=== PATIENT | male | born 1940 | race Caucasian/White ===

== ENCOUNTER 2021-11-17 06:24 | Inpatient (IN) | payer MEDICARE, MEDICAID ==
[~2021-11-17] VITALS: Ht 172.7 cm; Wt 61.3 kg
[2021-11-17] MEDS ORDERED: ACETAMINOPHEN 325MG TABLET PO STA (07:19)
[2021-11-17] MEDS ORDERED: SODIUM CHLORIDE 0.9% 1000ML BAG (SEPSIS BOLUS) IV ONE (07:30)
[2021-11-17] MEDS ORDERED: AZITHROMYCIN 500MG/250ML 250 ML IV ONE (07:30)
[2021-11-17] MEDS ORDERED: CEFTRIAXONE 1 G PREMIX 50 ML IV ONE (07:30)
[2021-11-17 07:57] LABS: BASOPHILS % 0.2 % (0.0-2.0); HEMOGLOBIN. 13.7 g/dL (14.0-18.0); LYMPHOCYTES % 8.5 % (20.0-50.0); MEAN CORPUSCULAR HEMOGLOBIN 30.2 pg (28.0-32.0); MEAN CORPUSCULAR VOLUME 88.1 fL (80.0-94.0); MEAN PLATELET VOLUME 9.5 fl (7.4-10.4); MONOCYTES % 7.9 % (2.0-8.0); NEUTROPHILS % 83.4 % (40.0-76.0); PLATELET 171 x1000/uL (130-400); RED BLOOD CELL COUNT 4.54 mill/uL (4.7-6.1); RED CELL DISTRIBUTION WIDTH 14.1 % (11.6-14.6)
[2021-11-17 08:06] LABS: CHLORIDE 108 mEq/L (98-107); PROTHROMBIN TIME 10.8 sec (9.6-11.0)
[2021-11-17 09:10] LABS: CLARITY URINE HAZY (CLEAR); COLOR URINE YELLOW (YELLOW); KETONES URINE NEGATIVE (NEGATIVE); PROTEIN URINE TRACE (NEGATIVE); SPECIFIC GRAVITY URINE 1.018 (1.005-1.030)
[2021-11-17 09:11] LABS: LEUKOCYTE ESTERASE URINE 1+ (NEGATIVE); NITRITE URINE NEGATIVE (NEGATIVE); OCCULT BLOOD URINE 1+ (NEGATIVE); UROBILINOGEN URINE 0.2 E.U./dL (0.2-1.0)
[2021-11-18] VITALS (7 sets, daily range): BP systolic 107–155; BP diastolic 56–88
[2021-11-18] MEDS ORDERED: ACETAMINOPHEN 325MG TABLET PO PRN (01:15)
[2021-11-18] MEDS ORDERED: TAMS-11 PO (03:17)
[2021-11-18] MEDS ORDERED: *PATIENT'S OWN MEDICATION STORAGE XX SCH (04:30)
[2021-11-18] MEDS: TAMSULOSIN HCL 0.4MG SR CAPSULE PO SCH (09:18)
[2021-11-18] MEDS: ENOXAPARIN 40MG/0.4ML SYR SUBCUT SCH (09:18)
[2021-11-18] MEDS: DEXAMETHASONE 10 MG/ML VIAL IV SCH (09:19)
[2021-11-18] MEDS: CEFTRIAXONE 1,000 MG in DEXTROSE 5% WATER 50 ML IV SCH (09:19)
[2021-11-18] MEDS: AZITHROMYCIN 500 MG in DEXT 5% WATER 250 ML IV SCH (10:12)
[2021-11-18 15:23] LABS: CHLORIDE 102 mEq/L (98-107)
[2021-11-18 15:26] LABS: HEMATOCRIT. 40.7 % (42.0-52.0); HEMOGLOBIN. 13.5 g/dL (14.0-18.0); MEAN CORPUSCULAR HEMOGLOBIN 28.9 pg (28.0-32.0); MEAN CORPUSCULAR VOLUME 87.2 fL (80.0-94.0); RED BLOOD CELL COUNT 4.66 mill/uL (4.7-6.1)
[2021-11-18 15:27] LABS: MEAN PLATELET VOLUME 9.7 fl (7.4-10.4); PLATELET 174 x1000/uL (130-400); RED CELL DISTRIBUTION WIDTH 13.8 % (11.6-14.6)
[2021-11-18 16:14] LABS: PLATELET ESTIMATE NORMAL
[2021-11-19] VITALS: BP 106/65
[2021-11-19 04:00] VITALS: BP 109/61
[2021-11-19] MEDS: CEFTRIAXONE 1,000 MG in DEXTROSE 5% WATER 50 ML IV SCH (09:01)
[2021-11-19] MEDS: ENOXAPARIN 40MG/0.4ML SYR SUBCUT SCH (09:01)
[2021-11-19] MEDS: DEXAMETHASONE 10 MG/ML VIAL IV SCH (09:01)
[2021-11-19] MEDS: TAMSULOSIN HCL 0.4MG SR CAPSULE PO SCH (09:02)
[2021-11-19] MEDS: GUAIFENESIN 200MG/10ML SUGAR FREE UDC PO PRN ×2 (12:09→20:21)
[2021-11-19] MEDS: AZITHROMYCIN 500 MG in DEXT 5% WATER 250 ML IV SCH (12:09)
[2021-11-19 16:00] VITALS: BP 143/45
[2021-11-19 20:00] VITALS: BP 150/94
[2021-11-20] VITALS: BP 143/91
[2021-11-20 04:00] VITALS: BP 133/86
[2021-11-20 08:00] VITALS: BP 133/99
[2021-11-20] MEDS: ENOXAPARIN 40MG/0.4ML SYR SUBCUT SCH (08:36)
[2021-11-20] MEDS: CEFTRIAXONE 1,000 MG in DEXTROSE 5% WATER 50 ML IV SCH (08:36)
[2021-11-20] MEDS: TAMSULOSIN HCL 0.4MG SR CAPSULE PO SCH (08:37)
[2021-11-20] MEDS: DEXAMETHASONE 10 MG/ML VIAL IV SCH (08:37)
[2021-11-20] MEDS: AZITHROMYCIN 500 MG in DEXT 5% WATER 250 ML IV SCH (10:09)
[2021-11-20] MEDS: GUAIFENESIN 200MG/10ML SUGAR FREE UDC PO PRN ×2 (10:13→20:06)
[2021-11-20 12:00] VITALS: BP 135/89
[2021-11-20 16:00] VITALS: BP 118/74
[2021-11-20 20:00] VITALS: BP 130/67
[2021-11-21] VITALS: BP 136/91
[2021-11-21 04:00] VITALS: BP 134/85
[2021-11-21] MEDS: GUAIFENESIN 200MG/10ML SUGAR FREE UDC PO PRN ×2 (04:25→20:23)
[2021-11-21 08:00] VITALS: BP 129/79
[2021-11-21] MEDS: ENOXAPARIN 40MG/0.4ML SYR SUBCUT SCH (08:58)
[2021-11-21] MEDS: DEXAMETHASONE 10 MG/ML VIAL IV SCH (08:58)
[2021-11-21] MEDS: CEFTRIAXONE 1,000 MG in DEXTROSE 5% WATER 50 ML IV SCH (08:58)
[2021-11-21] MEDS: AZITHROMYCIN 500 MG TABLET PO SCH (08:59)
[2021-11-21] MEDS: TAMSULOSIN HCL 0.4MG SR CAPSULE PO SCH (08:59)
[2021-11-21 12:00] VITALS: BP 125/82
[2021-11-21 16:00] VITALS: BP 125/79
[2021-11-21] MEDS ORDERED: ZOLPIDEM TARTRATE 5MG TABLET PO PRN (19:15)
[2021-11-21 20:00] VITALS: BP 117/80
[2021-11-22] VITALS: BP 117/75
[2021-11-22 04:00] VITALS: BP 127/85
[2021-11-22 08:00] VITALS: BP 116/74
[2021-11-22] MEDS: CEFTRIAXONE 1,000 MG in DEXTROSE 5% WATER 50 ML IV SCH (08:37)
[2021-11-22] MEDS: AZITHROMYCIN 500 MG TABLET PO SCH (08:38)
[2021-11-22] MEDS: GUAIFENESIN 200MG/10ML SUGAR FREE UDC PO PRN (08:38)
[2021-11-22] MEDS: ENOXAPARIN 40MG/0.4ML SYR SUBCUT SCH (08:38)
[2021-11-22] MEDS: TAMSULOSIN HCL 0.4MG SR CAPSULE PO SCH (08:38)
[2021-11-22] MEDS: DEXAMETHASONE 10 MG/ML VIAL IV SCH (08:38)
[2021-11-22 12:00] VITALS: BP 108/76
[2021-11-22 16:00] VITALS: BP 117/80
[2021-11-22 20:00] VITALS: BP 114/80
[2021-11-23] VITALS: BP 124/80
[2021-11-23 04:00] VITALS: BP 122/74
[2021-11-23 08:00] VITALS: BP 143/92
[2021-11-23] MEDS: TAMSULOSIN HCL 0.4MG SR CAPSULE PO SCH (09:22)
[2021-11-23] MEDS: ENOXAPARIN 40MG/0.4ML SYR SUBCUT SCH (11:35)
[2021-11-23 12:00] VITALS: BP 112/77
[2021-11-23] MEDS: DEXAMETHASONE 10 MG/ML VIAL IV SCH (13:36)
[2021-11-23 16:00] VITALS: BP 121/80
[2021-11-23 20:00] VITALS: BP 123/74
[2021-11-23] MEDS: GUAIFENESIN 200MG/10ML SUGAR FREE UDC PO PRN (20:52)
[2021-11-24] VITALS: BP 120/72
[2021-11-24 04:00] VITALS: BP 108/72
[2021-11-24 08:00] VITALS: BP 112/79
[2021-11-24] MEDS: DEXAMETHASONE 10 MG/ML VIAL IV SCH (08:47)
[2021-11-24] MEDS: GUAIFENESIN 200MG/10ML SUGAR FREE UDC PO PRN (08:47)
[2021-11-24] MEDS: ENOXAPARIN 40MG/0.4ML SYR SUBCUT SCH (08:47)
[2021-11-24] MEDS: TAMSULOSIN HCL 0.4MG SR CAPSULE PO SCH (09:38)
[2021-11-24 20:00] VITALS: BP 108/71
[2021-11-25 04:00] VITALS: BP 124/79
[2021-11-25 08:00] VITALS: BP 104/68
[2021-11-25 08:18] LABS: BASOPHILS % 0.2 % (0.0-2.0); EOSINOPHILS % 1.1 % (0.0-5.0); HEMATOCRIT. 39.2 % (42.0-52.0); HEMOGLOBIN. 13.5 g/dL (14.0-18.0); LYMPHOCYTES % 21.2 % (20.0-50.0); MEAN CORPUSCULAR HEMOGLOBIN 29.6 pg (28.0-32.0); MEAN CORPUSCULAR VOLUME 85.8 fL (80.0-94.0); MEAN PLATELET VOLUME 8.9 fl (7.4-10.4); MONOCYTES % 10.3 % (2.0-8.0); NEUTROPHILS % 67.2 % (40.0-76.0); PLATELET 332 x1000/uL (130-400); RED BLOOD CELL COUNT 4.58 mill/uL (4.7-6.1); RED CELL DISTRIBUTION WIDTH 13.8 % (11.6-14.6)
[2021-11-25] MEDS: DEXAMETHASONE 10 MG/ML VIAL IV SCH (08:29)
[2021-11-25] MEDS: TAMSULOSIN HCL 0.4MG SR CAPSULE PO SCH (08:29)
[2021-11-25] MEDS: ENOXAPARIN 40MG/0.4ML SYR SUBCUT SCH (08:30)
[2021-11-25 08:46] LABS: CHLORIDE 104 mEq/L (98-107)
[2021-11-25 12:00] VITALS: BP 103/68
[2021-11-25 16:00] VITALS: BP 105/64
[2021-11-25 20:00] VITALS: BP 114/74
[2021-11-26] VITALS: BP 138/82
[2021-11-26 03:59] VITALS: BP 115/65
[2021-11-26 08:00] VITALS: BP 117/79
[2021-11-26] MEDS: TAMSULOSIN HCL 0.4MG SR CAPSULE PO SCH (09:03)
[2021-11-26] MEDS: ENOXAPARIN 40MG/0.4ML SYR SUBCUT SCH (09:03)
[2021-11-26] MEDS: DEXAMETHASONE 10 MG/ML VIAL IV SCH (09:04)
[2021-11-26 12:00] VITALS: BP 115/74
[2021-11-26 16:00] VITALS: BP 109/72
[2021-11-26 20:00] VITALS: BP 107/71
[2021-11-27] VITALS: BP 129/80
[2021-11-27 04:00] VITALS: BP 115/79
[2021-11-27 08:00] VITALS: BP 114/77
[2021-11-27] MEDS: DEXAMETHASONE 10 MG/ML VIAL IV SCH (09:15)
[2021-11-27] MEDS: TAMSULOSIN HCL 0.4MG SR CAPSULE PO SCH (09:15)
[2021-11-27] MEDS: ENOXAPARIN 40MG/0.4ML SYR SUBCUT SCH (09:15)
[2021-11-27 12:00] VITALS: BP 135/82
[2021-11-27 16:00] VITALS: BP 110/74
[2021-11-27 20:00] VITALS: BP 150/99
[2021-11-28] VITALS: BP 145/92
[2021-11-28 04:00] VITALS: BP 125/82
[2021-11-28 08:00] VITALS: BP 125/81
[2021-11-28] MEDS: TAMSULOSIN HCL 0.4MG SR CAPSULE PO SCH (09:22)
[2021-11-28] MEDS: ENOXAPARIN 40MG/0.4ML SYR SUBCUT SCH (09:22)
[2021-11-28] MEDS: DEXAMETHASONE 10 MG/ML VIAL IV SCH (09:23)
[2021-11-28 12:00] VITALS: BP 114/67
[2021-11-28 16:00] VITALS: BP 124/82
[2021-11-28] MEDS ORDERED: ALBUTEROL 6.7GM HFA INHALER ORI PRN (17:00)
[2021-11-28] MEDS: BENZONATATE 100MG CAPSULE PO SCH (18:05)
[2021-11-28 20:00] VITALS: BP 105/71
[2021-11-29] VITALS: BP 117/73
[2021-11-29 04:00] VITALS: BP 112/69
[2021-11-29 08:00] VITALS: BP 109/68
[2021-11-29] MEDS: ENOXAPARIN 40MG/0.4ML SYR SUBCUT SCH (08:52)
[2021-11-29] MEDS: BENZONATATE 100MG CAPSULE PO SCH ×3 (08:54→16:19)
[2021-11-29] MEDS: TAMSULOSIN HCL 0.4MG SR CAPSULE PO SCH (08:54)
[2021-11-29 12:00] VITALS: BP 110/76
[2021-11-29 16:00] VITALS: BP 107/73
[2021-11-29 20:00] VITALS: BP 110/73
[2021-11-30] VITALS: BP 110/73
[2021-11-30 04:00] VITALS: BP 105/70
[2021-11-30 08:00] VITALS: BP 114/82
[2021-11-30] MEDS: TAMSULOSIN HCL 0.4MG SR CAPSULE PO SCH (08:57)
[2021-11-30] MEDS: BENZONATATE 100MG CAPSULE PO SCH ×3 (08:57→16:52)
[2021-11-30] MEDS: ENOXAPARIN 40MG/0.4ML SYR SUBCUT SCH (08:57)
[2021-11-30 12:00] VITALS: BP_SYST 109; BP_SYST 124; BP_DIAS 71; BP_DIAS 72
[2021-11-30 15:53] VITALS: BP 105/70
[2021-11-30 20:00] VITALS: BP 118/67
[2021-12-01] VITALS: BP_SYST 103; BP_SYST 110; BP_DIAS 66; BP_DIAS 68
[2021-12-01 04:00] VITALS: BP 103/68
[2021-12-01 08:00] VITALS: BP 112/71
[2021-12-01] MEDS: ENOXAPARIN 40MG/0.4ML SYR SUBCUT SCH (09:57)
[2021-12-01] MEDS: BENZONATATE 100MG CAPSULE PO SCH ×3 (09:58→16:50)
[2021-12-01] MEDS: TAMSULOSIN HCL 0.4MG SR CAPSULE PO SCH (09:58)
[2021-12-01 12:00] VITALS: BP 106/72
[2021-12-01 16:00] VITALS: BP 119/77
[2021-12-01 20:00] VITALS: BP 100/72
[2021-12-02] VITALS: BP 107/67
[2021-12-02 04:00] VITALS: BP 118/72
[2021-12-02 06:35] LABS: MEAN CORPUSCULAR HEMOGLOBIN 30.1 pg (28.0-32.0); MEAN CORPUSCULAR VOLUME 85.7 fL (80.0-94.0); MEAN PLATELET VOLUME 8.7 fl (7.4-10.4); PLATELET 330 x1000/uL (130-400); RED BLOOD CELL COUNT 4.32 mill/uL (4.7-6.1); RED CELL DISTRIBUTION WIDTH 14.3 % (11.6-14.6)
[2021-12-02 07:35] LABS: CHLORIDE 106 mEq/L (98-107)
[2021-12-02 08:00] VITALS: BP 128/76
[2021-12-02] MEDS: ENOXAPARIN 40MG/0.4ML SYR SUBCUT SCH (08:51)
[2021-12-02] MEDS: BENZONATATE 100MG CAPSULE PO SCH ×3 (08:52→19:40)
[2021-12-02] MEDS: TAMSULOSIN HCL 0.4MG SR CAPSULE PO SCH (08:52)
[2021-12-02 12:00] VITALS: BP 106/68
[2021-12-02 16:00] VITALS: BP 107/70
[2021-12-02 18:14] LABS: PLATELET ESTIMATE NORMAL
[2021-12-02 20:00] VITALS: BP 120/68
[2021-12-03] VITALS (7 sets, daily range): BP systolic 105–132; BP diastolic 64–79
[2021-12-03] MEDS: BENZONATATE 100MG CAPSULE PO SCH ×3 (08:31→18:21)
[2021-12-03] MEDS: TAMSULOSIN HCL 0.4MG SR CAPSULE PO SCH (08:31)
[2021-12-03] MEDS: ENOXAPARIN 40MG/0.4ML SYR SUBCUT SCH (08:31)
== END 2021-12-03 22:05 | DRG 871 ==
LOC: ER 06:48 → EDBEDREQTM 07:40 → EDBEDREQ 09:19 → EDBEDREQSVC 09:19 → EDBEDREQTM 09:19 → 7EST 12:14 → EDBEDREQTM 12:30 → EDBEDREQ 12:30 → ENRESERV 23:10 → 7WST 11-30 17:00
PROVIDERS: ADMIT Internal Medicine; ATTEND Internal Medicine
DX: A41.9 Sepsis, unspecified organism (principal); U07.1 COVID-19; J96.00 Acute respiratory failure, unspecified whether with hypoxia or hypercapnia; N40.0 Benign prostatic hyperplasia without lower urinary tract symptoms; E87.8 Other disorders of electrolyte and fluid balance, not elsewhere classified
CPT/HCPCS: 36415; 71045; 80048; 80053; 81003; 83605; 83880; 84145; 84484; 85025; 87426; 93005; 97110; 97112; 97116; 97162; 99291; J0456; J0696; J1100; J1650; J7030; J7040; J7060